=== PATIENT | male | born 1985 | race Caucasian/White ===

== ENCOUNTER 2024-02-08 17:42 | Emergency (ER) | payer OTHER ==
[2024-02-08 19:45] LABS: Specific Gravity 1.025 (1.005-1.030); Urine Bilirubin NEGATIVE (Negative); Urine Blood Negative (Negative); Urine Clarity Clear (Clear); Urine Color Yellow (Yellow); Urine Glucose 4+ (Over) (Negative); Urine Ketones TRACE (Negative); Urine Microscopic Reflex YN NO UMIC; Urine Nitrite NEGATIVE (Negative); Urine Protein NEGATIVE (Negative); Urine Urobilinogen Normal (Normal); Urine pH 5.5 (5.0-7.0)
--- NOTE | 2024-02-08 20:35 | ER ---
Nurse's Notes [facility] Name: Levar Carl Age: 38 yrs Sex: Male : 1985 Arrival Date: 02/08/2024 Time: 17:42 Bed 8 Private MD: Diagnosis: Hyperglycemia, unspecified;Acute pain, not elsewhere classified Presentation: 02/07 17:58 Chief complaint: Patient states: B groin pains for 2 days. No fever. Coronavirus ll1 screen: Client denies travel out of the [place] in the last 14 days. At this time, the client does not indicate any symptoms associated with coronavirus-19. Ebola Screen: Patient denies travel to an Ebola-affected area in the 21 days before illness onset. 17:58 Method Of Arrival: Ambulatory ll1 17:59 Initial Sepsis Screen: Does the patient meet any 2 criteria? No. Patient's initial ll1 sepsis screen is negative. Does the patient have a suspected source of infection? No. Patient's initial sepsis screen is negative. Risk Assessment: Do you want to hurt yourself or someone else? Patient reports no desire to harm self or others. Onset of symptoms was February 07, 2024. 17:59 Acuity: DEVEN 2 ll1 Triage Assessment: 17:58 General: Appears uncomfortable, Behavior is calm, cooperative, appropriate for age. ll1 Pain: Complains of pain in B groin Quality of pain is described as aching. : Reports pain in bilateral groin area. Historical: - Allergies: 17:57 No Known Allergies; ll1 - PMHx: 17:57 testicular CA; Hypertensive disorder; Diabetes mellitus; ll1 - PSHx: 17:57 finger surgery; R testes removed; ll1 - Immunization history:: Adult Immunizations up to date. - Infectious Disease History:: Denies. - Social history:: Smoking status: Patient denies any tobacco usage or history of. Screenin:42 [facility] ED Fall Risk Assessment (Adult) History of falling in the last 3 months, mt4 including since admission No falls in past 3 months (0 pts) Confusion or Disorientation No (0 pts) Intoxicated or Sedated No (0 pts) Impaired Gait No (0 pts) Mobility Assist Device Used No (0 pt) Altered Elimination No (0 pt) Score/Fall Risk Level 0 - 2 = Low Risk. Abuse screen: Denies injuries from another. Nutritional screening: No deficits noted. Tuberculosis screening: No symptoms or risk factors identified. Exposure risk/Travel Screening: None identified. Assessment: 19:42 General: Appears in no apparent distress. comfortable, obese, Behavior is calm, mt4 cooperative, appropriate for age. General:. Pain: Complains of pain in pelvis Pain currently is 4 out of 10 on a pain scale. Quality of pain is described as throbbing, Pain began 2-3 days ago. Is intermittent. Neuro: Level of Consciousness is awake, alert, obeys commands, Oriented to person, place, time, situation, Appropriate for age General Worker are equal bilaterally Moves all extremities. Gait is unsteady, Speech is normal, Facial symmetry appears normal. Cardiovascular: Capillary refill < 3 seconds. Respiratory: Airway is patent. GI: Abdomen is round obese, Abd is non tender. : Reports pain. Derm: Skin is intact, Skin is dry, Skin temperature is warm. Musculoskeletal: Capillary refill < 3 seconds, Range of motion: intact in all extremities. 21:28 Reassessment: Patient appears in no apparent distress at this time. No changes from al5 previously documented assessment. Patient and/or family updated on plan of care and expected duration. Pain level reassessed. Patient is alert, oriented x 3, equal unlabored respirations, skin warm/dry/pink. Vital Signs: 17:58 BP 159 / 104; Pulse 85; Resp 18; Pulse Ox 99% ; Weight 154.22 kg; Height 6 ft. 5 in. ; ll1 Pain 4/10; 19:42 BP 133 / 90; Pulse 84; Resp 17; Temp 98.2(O); Pain 7/10; mt4 20:30 BP 130 / 96; Pulse 80; Resp 16; Pulse Ox 94% on R/A; al5 21:00 BP 131 / 95; Pulse 85; Resp 16; Pulse Ox 96% on R/A; al5 17:58 Body Mass Index 40.32 (154.22 kg, 195.58 cm) ll1 17:58 Pain Scale: Adult ll1 19:42 Pain Scale: Adult mt4 Kindra Coma Score: 19:42 Eye Response: spontaneous(4). Motor Response: obeys commands(6). Verbal Response: mt4 oriented(5). Total: 15. ED Course: 17:47 Patient arrived in ED. im 17:52 Yassine Suazo PA is PHCP. cp 17:52 Ja Mcnamara MD is Attending Physician. cp 17:59 Triage completed. ll1 17:59 Arm band placed on. ll1 19:35 Danielle King, RN is Primary Nurse. mt4 19:42 No apparent distress. Resting quietly. Awaiting lab results. mt4 19:42 Patient has correct armband on for positive identification. Fall risk band placed. Bed mt4 in low position. Side rails up X 1. Provided Education on: lab. Client placed on continuous cardiac and pulse oximetry monitoring. NIBP monitoring applied. satellite project site monitor on. Pulse ox on. Door closed. Lights dimmed. Warm blanket given. Pillow given. Verbal reassurance given. 19:42 No provider procedures requiring assistance completed. Patient maintains SpO2 mt4 saturation greater than 95% on room air. 21:29 Patient did not have IV access during this emergency room visit. al5 Administered Medications: No medications were administered Medication: 19:42 VIS not applicable for this client. mt4 Outcome: 20:34 Discharge ordered by MD. cp 21:29 Discharged to home ambulatory, al5 21:29 Condition: good 21:29 Discharge instructions given to patient, Instructed on discharge instructions, follow up and referral plans. Demonstrated understanding of instructions, follow-up care, 21:46 Patient left the ED. al5 Signatures: Yassine Suazo PA PA Maynor Corona, RN RN ll1 Love Jimenez Danielle King, RN RN mt4 Lindsay Fried RN RN al5 Corrections: (The following items were deleted from the chart) 21:29 21:00 BP 131 / 95; Pulse 85bpm; Resp 96bpm; Pulse Ox 96% RA; al5 al5
--- NOTE | 2024-02-08 20:35 | EDPHYS ---
Physician Documentation [facility] Name: Levar Carl Age: 38 yrs Sex: Male : 1985 Arrival Date: 02/08/2024 Time: 17:42 Bed 8 Private MD: ED Physician Ja Mcnamara HPI: 02/07 18:30 This 38 yrs old Male presents to ER via Ambulatory with complaints of Groin Pain. cp 18:30 Patient is 38 y/o male with PMHX significant for hypertension and diabetes mellitus who cp presents to the emergency department with complaints of pain started in the suprapubic area today and lasted about an hour or so and has resolved prior to arrival. Patient denies any radiating pain to his back, denies any pain in his testicles, denies any pain with urination and or abdominal pain. Historical: - Allergies: 17:57 No Known Allergies; ll1 - PMHx: 17:57 testicular CA; Hypertensive disorder; Diabetes mellitus; ll1 - PSHx: 17:57 finger surgery; R testes removed; ll1 - Immunization history:: Adult Immunizations up to date. - Infectious Disease History:: Denies. - Social history:: Smoking status: Patient denies any tobacco usage or history of. ROS: 18:40 : Positive for suprapubic pain, Negative for urinary symptoms, testicular pain cp 18:40 Constitutional: Negative for body aches, chills, fever, poor PO intake, cp 18:40 Eyes: Negative for injury, pain, redness, and discharge, cp 18:40 ENT: Negative for drainage from ear(s), ear pain, sore throat, difficulty swallowing, difficulty handling secretions, 18:40 Cardiovascular: Negative for chest pain, edema, palpitations, 18:40 Respiratory: Negative for cough, shortness of breath, wheezing, 18:40 Abdomen/GI: Negative for abdominal pain, nausea, vomiting, and diarrhea, 18:40 Back: Negative for pain at rest, pain with movement, 18:40 All other systems are negative, Exam: 18:43 Constitutional: The patient appears in no acute distress, alert, awake, comfortable, cp non-toxic, well developed, well nourished, obese, 18:43 Head/Face: Normocephalic, atraumatic. cp 18:43 Eyes: Periorbital structures: appear normal, Conjunctiva: normal, no exudate, no injection, Sclera: no appreciated abnormality, 18:43 Chest/axilla: Inspection: normal, 18:43 Cardiovascular: Rate: normal, 18:43 Respiratory: the patient does not display signs of respiratory distress, Respirations: normal, no use of accessory muscles, no retractions, labored breathing, is not present, Breath sounds: are clear throughout, no decreased breath sounds, no stridor, no wheezing, 18:43 Abdomen/GI: Inspection: abdomen appears normal, Bowel sounds: active, all quadrants, Palpation: abdomen is soft and non-tender, in all quadrants, 18:43 Back: pain, is absent, ROM is normal, 18:43 : Male external genitalia: Circumcision noted. swelling: is not appreciated, tenderness, is not appreciated, no suprapubic tenderness, no swelling and/or masses palpated, 18:43 Skin: cellulitis, is not appreciated, no rash present. Vital Signs: 17:58 BP 159 / 104; Pulse 85; Resp 18; Pulse Ox 99% ; Weight 154.22 kg; Height 6 ft. 5 in. ; ll1 Pain 4/10; 19:42 BP 133 / 90; Pulse 84; Resp 17; Temp 98.2(O); Pain 7/10; mt4 20:30 BP 130 / 96; Pulse 80; Resp 16; Pulse Ox 94% on R/A; al5 21:00 BP 131 / 95; Pulse 85; Resp 16; Pulse Ox 96% on R/A; al5 17:58 Body Mass Index 40.32 (154.22 kg, 195.58 cm) ll1 17:58 Pain Scale: Adult ll1 19:42 Pain Scale: Adult mt4 Rolfe Coma Score: 19:42 Eye Response: spontaneous(4). Motor Response: obeys commands(6). Verbal Response: mt4 oriented(5). Total: 15. MDM: 18:01 Medical Screening Exam initiated cp 20:33 Data reviewed: vital signs, nurses notes, and as a result, I will discharge patient. cp 20:33 Counseling: I had a detailed discussion with the patient and/or guardian regarding the cp historical points, exam findings, and any diagnostic results supporting the discharge/admit diagnosis, lab results, to return to the emergency department if symptoms worsen or persist or if there are any questions or concerns that arise at home. 02/07 18:24 Order name: Urinalysis w/ reflexes; Complete Time: 20:00 cp 02/07 20:47 Order name: Glucose, Ancillary Testing EDMS 02/07 20:00 Order name: Accucheck Blood Glucose; Complete Time: 20:35 cp Administered Medications: No medications were administered Disposition Summary: 02/08/24 20:34 Discharge Ordered Notes: Location: Home cp Problem: new cp Symptoms: have improved cp Condition: Stable cp Diagnosis - Hyperglycemia, unspecified cp - Acute pain, not elsewhere classified cp Followup: cp - With: Private Physician - When: 2 - 3 days - Reason: Worsening of condition Discharge Instructions: - Discharge Summary Sheet cp - Hyperglycemia cp - Blood Glucose Monitoring, Adult cp - Acute Pain, Adult cp Forms: - Medication Reconciliation Form cp - Antibiotic Education cp - Prescription Opioid Use cp - Patient Portal Instructions cp - Leadership Thank You Letter cp Signatures: Dispatcher [employer] EDRI Yassine Suazo PA PA cp Maynor Anthony RN RN ll1 Danielle King RN RN mt4 Corrections: (The following items were deleted from the chart) 02/08 20:57 02/07 18:40 : Positive for suprapubic pain, cp cp
[2024-02-08 21:57] VITALS: TEMP 98.2
[2024-02-08 21:59] VITALS: BP 131/95; O2SAT 96
== END 2024-02-08 21:46 | disposition home or self-care (01) ==
LOC: ER 17:42
DX: E11.65 Type 2 diabetes mellitus with hyperglycemia (principal); R52 Pain, unspecified; I10 Essential (primary) hypertension
CPT/HCPCS: 81003; 82947; 99284

== ENCOUNTER 2024-02-17 11:33 | Emergency (ER) | payer OTHER ==
--- NOTE | 2024-02-17 12:30 | RAD REPORT ---
EXAMINATION: CT ABDOMEN AND PELVIS WITHOUT CONTRAST CLINICAL INDICATION: Male, 38 years old.L flank/groin pain TECHNIQUE: CT abdomen and pelvis was performed, without IV contrast, as per department protocol. Axia l, sagittal and coronal reconstructions were obtained. One or more of the following dose reduction techniques were used: Automated exposure control, adjustment of the mA and/or kV according to the pat ient size, and/or iterative reconstruction. Unless otherwise specified, incidental findings do not require dedicated imaging follow-up. [id number]. IV CONTRAST: Not administered. COMPARISON: 09/03/2016 FINDINGS: The lack of intravenous contrast limits the sensitivity of this exam for evaluation of solid visceral organs, vascular structures, and retroperitoneum. LOWER CHEST: The visualized lung bases are clear. LIVER: Hepatic steatosis. No focal masses. GALLBLADDER/BILE DUCTS: No biliary ductal dilatation.? PANCREAS: No mass, ductal dilation, or jhonatan-pancreatic fluid. SPLEEN: Normal size. No focal lesion. ADRENALS: Normal; no mass. KIDNEYS AND URETERS: Chronic left-sided hydronephrosis which may be from a left UPJ obstruction. Ther e is a kink at the left UPJ which is similar. No ureteral calculi. Neither ureter is dilated. URINARY BLADDER: Normal contour. GASTROINTESTINAL TRACT: Stomach is non-dilated. Small bowel has normal course and caliber. No colonic wall thickening or pericolonic inflammatory changes. Normal appendix. PERITONEUM: No free fluid. ABDOMINAL AORTA AND OTHER VESSELS: Normal caliber aorta and IVC. REPRODUCTIVE ORGANS: Right orchiectomy MUSCULOSKELETAL: No acute or suspicious osseous abnormality. ADDITIONAL FINDINGS: None. IMPRESSION: No definite acute findings within the abdomen or pelvis. Chronic left-sided hydronephrosis which is l ikely due to a chronic left UPJ obstruction, possibly due to a kink. It is of uncertain significance as there is no appreciable left renal atrophy. Could consider outpatient urology follow- up. This could be a source of pain as well.
[2024-02-17 12:37] LABS: Specific Gravity > 1.030 (1.005-1.030); Urine Bilirubin NEGATIVE (Negative); Urine Blood Negative (Negative); Urine Clarity Clear (Clear); Urine Color Light-Yellow (Yellow); Urine Glucose 4+ (Over) (Negative); Urine Ketones TRACE (Negative); Urine Microscopic Reflex YN NO UMIC; Urine Nitrite NEGATIVE (Negative); Urine Protein NEGATIVE (Negative); Urine Urobilinogen Normal (Normal); Urine pH 5.5 (5.0-7.0)
[2024-02-17] MEDS ORDERED: KETOROLAC 30 MG/ML INJ ONE (12:58)
[2024-02-17] MEDS ORDERED: ONDANSETRON 4 MG/2 ML VIAL ONE (12:58)
[2024-02-17 13:06] LABS: Absolute Basophils 0.1 K/uL (0-0.5); Absolute Eosinophils 0.1 K/uL (0-0.5); Absolute Monocytes 0.7 K/uL (0.1-1.3); Absolute Neutrophil 5.4 K/uL (1.8-8.0); Basophils % 0.8 % (0-1.3); Eosinophils % 1.7 % (0-4.4); Hematocrit 48.1 % (39.6-49.0); Hemoglobin 16.4 g/dL (13.6-17.9); Lymphocytes % 23.9 % (15.3-44.8); MCH 33.8 pg (27.0-35.0); MCHC 34.1 g/dL (32.0-36.0); MCV 99.3 fL (80-100); MPV 9.5 fL (7.6-11.3); Monocytes % 8.9 % (3.3-12.3); Neutrophils % 64.7 % (41.7-73.7); Platelets 170 thou/uL (152-406); RBC Red Blood Cell Count 4.85 M/uL (4.33-5.43); Red Cell Distribution Width 13.2 % (12.1-15.2)
[2024-02-17 13:28] LABS: Albumin 3.8 g/dL (3.4-5.0); Albumin/Globulin Ratio 1.1 (1.1-1.8); Anion Gap 8.6 mEq/L (5.0-15.0); Bilirubin Total 1.5 mg/dL (0.2-1.0); Globulin 3.4 g/dL (2.3-3.5); Potassium 4.6 mEq/L (3.5-5.1); Protein, Total 7.2 g/dL (6.4-8.2)
--- NOTE | 2024-02-17 14:21 | EDPHYS ---
Physician Documentation [facility] Name: Levar Carl Age: 38 yrs Sex: Male : 1985 Arrival Date: 02/17/2024 Time: 11:33 Bed 24 Private MD: ED Physician Sy Cason HPI: 02/16 11:57 This 38 yrs old Male presents to ER via Ambulatory with complaints of Groin ec2 Pain, Testicular Pain, Back Pain. 11:57 Patient arrives today for evaluation of left-sided groin pain and left-sided flank ec2 pain. Onset of symptoms approximate 1.5 weeks ago. Reports no urinary complaints. 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 He is s/p resection. Historical: - Allergies: 11:36 No Known Allergies; ll1 - PMHx: 11:36 diabetes mellitus; Hypertensive disorder; testicular CA; ll1 - PSHx: 11:36 finger surgery; R testes removed; ll1 - Immunization history:: Adult Immunizations up to date. - Infectious Disease History:: Denies. - Social history:: Smoking status: Patient denies any tobacco usage or history of. ROS: 11:57 Constitutional: as per hpi ec2 Exam: 11:57 Constitutional: GEN: NAD Head: atraumatic Eyes: EOMI Ears: External ears are ec2 normal. CV: regular rate LUNGS: no respiratory distress ABD: non-distended, soft, minimally tender left abdomen, left CVA TTP. SKIN: no evidence of rashes MSK: no evidence of trauma Vital Signs: 11:50 BP 151 / 102; Pulse 94; Resp 17; Temp 97.9; Pulse Ox 99% on R/A; Weight 158.76 kg; ll1 Height 6 ft. 5 in. ; Pain 7/10; 13:32 BP 141 / 98; Pulse 89; Resp 18; Pulse Ox 100% on R/A; ph 14:42 BP 137 / 89; Pulse 87; Resp 18; Temp 97.9; Pulse Ox 98% on R/A; ph 11:50 Body Mass Index 41.50 (158.76 kg, 195.58 cm) ll1 11:50 Pain Scale: Adult ll1 MDM: 11:51 Medical Screening Exam initiated ec2 11:57 Data reviewed: vital signs, nurses notes. ED course: Patient arrives today for ec2 evaluation of left flank pain. Examination remarkable for well-appearing nontoxic individuals otherwise in no acute distress with a reassuring examination. Obtain lab work as well as CT imaging. Differential diagnosis includes ureteral stone, UTI, pyelonephritis.. 11 11:57 Order name: CBC with Diff; Complete Time: 14:09 ec2 02/16 11:57 Order name: CMP; Complete Time: 14:09 ec2 02/16 11:57 Order name: Lipase; Complete Time: 14:09 ec2 02/16 11:57 Order name: Urinalysis w/ reflexes; Complete Time: 12:42 ec2 02/16 11:57 Order name: CT Abd/Pelvis - Without Contrast; Complete Time: 12:42 ec2 02/16 11:57 Order name: IV Saline Lock; Complete Time: 13:01 ec2 02/16 11:57 Order name: Labs collected and sent; Complete Time: 13:01 ec2 Administered Medications: 13:05 Drug: TORadol - Ketorolac IVP 15 mg IVP once Route: IVP; Site: left antecubital; ph 14:27 Follow up: Response: No adverse reaction; Pain is decreased ph 14:27 Not Given (Pt declined, denies nausea): ondansetron 4 mg IVP once; over 2 minutes ph Disposition Summary: 02/17/24 14:21 Discharge Ordered Condition: Stable ec2 Diagnosis - Groin Pain ec2 Followup: ec2 - With: Private Physician - When: - Reason: Re-evaluation by your physician Followup: ec2 - With: Kobi De La Fuente MD - When: - Reason: Recheck today's complaints Discharge Instructions: - Discharge Summary Sheet ec2 - Flank Pain, Adult, [id number]-[id number] ec2 Forms: - Work release form ph - Medication Reconciliation Form ec2 - Antibiotic Education ec2 - Prescription Opioid Use ec2 - Patient Portal Instructions ec2 - Leadership Thank You Letter ec2 Signatures: Dispatcher [employer] Stacey Vazquez RN RN ph Lewis, Lynsay, RN RN ll1 Sy Cason MD MD ec2 Corrections: (The following items were deleted from the chart) 11:57 11:57 CBC+H.LAB.BRZ ordered. [facility] 11:57 11:57 COMPREHENSIVE METABOLIC PANEL+C.LAB.BRZ ordered. EDMS EDMS 11:57 11:57 LIPASE+C.LAB.BRZ ordered. EDMS EDMS 11:57 11:57 Urinalysis+U.LAB.BRZ ordered. EDMS EDMS 11:57 11:57 Patient arrives today for evaluation of left-sided groin pain and left-sided ec2 flank pain. Onset of symptoms approximate 1.5 weeks ago. Reports no urinary complaints. States he has a previous history of testicular cancer in the right testicle.. ec2
--- NOTE | 2024-02-17 14:21 | ER ---
Nurse's Notes [facility] Name: Levar Carl Age: 38 yrs Sex: Male : 1985 Arrival Date: 02/17/2024 Time: 11:33 Bed 24 Private MD: Diagnosis: Groin Pain Presentation: 02/16 11:46 Coronavirus screen: Client denies travel out of the [place] in the last 14 days. At this [facility] time, the client does not indicate any symptoms associated with coronavirus-19. Ebola Screen: Patient denies travel to an Ebola-affected area in the 21 days before illness onset. Initial Sepsis Screen: Does the patient meet any 2 criteria? No. Patient's initial sepsis screen is negative. Does the patient have a suspected source of infection? No. Patient's initial sepsis screen is negative. Risk Assessment: Do you want to hurt yourself or someone else? Patient reports no desire to harm self or others. 11:46 Method Of Arrival: Ambulatory [facility] 11:50 Chief complaint: Patient states: L groin pain continues since last visit here. Went to [facility] and they sent him here for further evaluation. Onset of symptoms. 11:50 Acuity: DEVEN 3 [facility] 11:51 Onset of symptoms was February 06, 2024. [facility] Triage Assessment: 11:46 General: Appears uncomfortable, Behavior is calm, cooperative, appropriate for age. ll1 Pain: Complains of pain in L groin area. : Reports pain in right in suprapubic area. Historical: - Allergies: 11:36 No Known Allergies; ll1 - PMHx: 11:36 diabetes mellitus; Hypertensive disorder; testicular CA; 1 - PSHx: 11:36 finger surgery; R testes removed; ll1 - Immunization history:: Adult Immunizations up to date. - Infectious Disease History:: Denies. - Social history:: Smoking status: Patient denies any tobacco usage or history of. Screenin:02 [facility] ED Fall Risk Assessment (Adult) History of falling in the last 3 months, ph including since admission No falls in past 3 months (0 pts) Confusion or Disorientation No (0 pts) Intoxicated or Sedated No (0 pts) Impaired Gait No (0 pts) Mobility Assist Device Used No (0 pt) Altered Elimination No (0 pt) Score/Fall Risk Level 0 - 2 = Low Risk Oriented to surroundings, Maintained a safe environment, Hourly rounding (assess needs \T\ fall precautionary measures) done. Abuse screen: Denies threats or abuse. Denies injuries from another. Nutritional screening: No deficits noted. Tuberculosis screening: No symptoms or risk factors identified. Assessment: 13:31 General: Appears in no apparent distress. Behavior is calm, cooperative. Pain: ph Complains of pain in anterior aspect of left lateral abdomen and posterior aspect of left lateral abdomen Pain radiates to left femoral area. Neuro: Level of Consciousness is awake, alert, obeys commands, Oriented to person, place, time, situation. Cardiovascular: Capillary refill < 3 seconds in bilateral fingers Patient's skin is warm and dry. Respiratory: Airway is patent Respiratory effort is even, unlabored, Respiratory pattern is regular, symmetrical. GI: Patient currently denies nausea, vomiting. : Reports pain in left flank(s), lower quadrant(s) in lower back testicle, Denies inability to void, urinary frequency. Derm: Skin is pink, warm \T\ dry. Vital Signs: 11:50 BP 151 / 102; Pulse 94; Resp 17; Temp 97.9; Pulse Ox 99% on R/A; Weight 158.76 kg; ll1 Height 6 ft. 5 in. ; Pain 7/10; 13:32 BP 141 / 98; Pulse 89; Resp 18; Pulse Ox 100% on R/A; ph 14:42 BP 137 / 89; Pulse 87; Resp 18; Temp 97.9; Pulse Ox 98% on R/A; ph 11:50 Body Mass Index 41.50 (158.76 kg, 195.58 cm) ll1 11:50 Pain Scale: Adult ll1 ED Course: 11:36 Patient arrived in ED. mr 11:36 Arm band placed on. ll1 11:37 Sy Cason MD is Attending Physician. ec2 11:51 Triage completed. ll1 12:08 CT Abd/Pelvis - Without Contrast In Process Unspecified. EDMS 12:29 Urinalysis w/ reflexes Sent. ss 12:55 Stacey Rizzo, RN is Primary Nurse. ph 12:55 Initial lab(s) drawn, by ED staff, sent to lab. Inserted saline lock: 20 gauge in left ph antecubital area, using aseptic technique. Blood collected. Flushed with 10 mL NS. 13:01 CBC with Diff Sent. ph 13:01 CMP Sent. ph 13:01 Lipase Sent. ph 13:03 Patient has correct armband on for positive identification. Bed in low position. Call ph light in reach. Side rails up X 1. Pulse ox on. NIBP on. Door closed. Noise minimized. Pillow given. 14:21 Kobi De La Fuente MD is Referral Physician. ec2 14:27 No provider procedures requiring assistance completed. IV discontinued, intact, ph bleeding controlled, No redness/swelling at site. Pressure dressing applied. Administered Medications: 13:05 Drug: TORadol - Ketorolac IVP 15 mg IVP once Route: IVP; Site: left antecubital; ph 14:27 Follow up: Response: No adverse reaction; Pain is decreased ph 14:27 Not Given (Pt declined, denies nausea): ondansetron 4 mg IVP once; over 2 minutes ph Medication: 13:03 VIS not applicable for this client. ph Outcome: 14:21 Discharge ordered by . ec2 14:42 Discharged to home ambulatory, ph 14:42 Condition: good 14:42 Discharge instructions given to patient, Instructed on discharge instructions, follow up and referral plans. Demonstrated understanding of instructions, follow-up care, 14:43 Patient left the ED. ph Signatures: Dispatcher [employer] EDNE Marlys Pratt, Reg Reg Valentina Ambrose, RN RN ss Stacey Rizzo RN RN ph Lewis, Lynsay, RN RN [facility] Sy Cason MD MD ec2
[2024-02-17 14:52] VITALS: TEMP 97.9
[2024-02-17 14:54] VITALS: BP 137/89; O2SAT 98
== END 2024-02-17 14:43 | disposition home or self-care (01) ==
LOC: ER 11:33
DX: R10.32 Left lower quadrant pain (principal); Z85.47 Personal history of malignant neoplasm of testis
CPT/HCPCS: 85025; 36415; 81003; 83690; 80053; 74176; 96374; 99284; J2405